=== PATIENT | female | born 1985 | race Asian ===

== ENCOUNTER 2019-07-11 10:59 | Emergency (ER) | payer OTHER ==
[~2019-07-11] VITALS: Ht 162.6 cm; Wt 58.1 kg
[2019-07-11] MEDS ORDERED: NKM (11:08)
[2019-07-11 11:20] VITALS: BP 122/81
--- NOTE | 2019-07-11 11:23 | Emergency Room Report ---
History of Present Illness General Chief Complaint: General Complaint Source: Patient Present Illness HPI Patient is a 33-year-old female who presents after a needlestick to her finger. Patient denies any other locations of injury. She had injury earlier in the day. Patient stated she was accidentally stuck with an insulin syringe from an outpatient. Patient reportedly per patient was HIV negative and had previous draw approximately 3 months ago. She reports having up-to-date tetanus vaccine.Patient was receiving a subcu insulin injection into the arm. Allergies: Coded Allergies: No Known Allergies (Unverified , 07/11/19) Patient History Past Medical History: see triage record Last Menstrual Period: Now: No Reviewed Nursing Documentation: PMH: Agreed; PSxH: Agreed Nursing Documentation-PMH Past Medical History: No Stated History Review of Systems All Other Systems: negative except mentioned in HPI Physical Exam Vital Signs Date Time Temp Pulse Resp B/P (MAP) Pulse Ox O2 Delivery O2 Flow Rate FiO2 07/11/19 11:03 97.5 69 16 122/81 (95) 97 Room Air General Appearance: well appearing, no apparent distress, alert, GCS 15, non- toxic Head: normocephalic, atraumatic ENT: hearing grossly normal, normal voice Neck: full range of motion, supple Respiratory: no respiratory distress, speaking full sentences Gastrointestinal: normal inspection Musculoskeletal: other - puncture wound to finger Neurologic: alert, motor strength/tone normal, specialty person III-XII nml as tested, EOM palsy, normal gait Psychiatric: mood/affect normal Skin: no rash Medical Decision Making Diagnostic Impression: Primary Impression: Needlestick injury of finger ER Course Patient presented for a needlestick injury. Differential diagnosis include was not limited to foreign body, infectious disease exposure, among others. Baseline laboratory testing was ordered due to the patient's recent needlestick. Patient does not appear to require HIV prophylaxis at this time. Patient was noted to be HIV negative. Patient wash the area recently. Tetanus is up-to-date. Patient to follow-up with outpatient Worker's Comp. for recheck. Last Vital Signs Date Time Temp Pulse Resp B/P (MAP) Pulse Ox O2 Delivery O2 Flow Rate FiO2 07/11/19 11:03 97.5 69 16 122/81 (95) 97 Room Air Status: improved Disposition: HOME, SELF-CARE Condition: Stable Damian Rocha MD Jul 11, 2019 11:23
[2019-07-11 12:19] VITALS: BP 121/71
== END 2019-07-11 12:20 | disposition home or self-care (01) ==
LOC: EMR 12:07
DX: S61.031A Puncture wound without foreign body of right thumb without damage to nail, initial encounter (principal); W26.8XXA Contact with other sharp object(s), not elsewhere classified, initial encounter; Y92.9 Unspecified place or not applicable; Y99.0 Civilian activity done for income or pay
CPT/HCPCS: 86703; 86803; 87517; 99283